=== PATIENT | male | born 1955 | race African-American/Black ===

== ENCOUNTER 2016-10-10 06:04 | Day surgery (SDC) | payer BC ==
[2016-10-10] VITALS (10 sets, daily range): BP systolic 139–169; BP diastolic 72–96; PULSE 55–80; TEMP 97.7
[~2016-10-10] VITALS: Ht 175.3 cm; Wt 118.6 kg
[2016-10-10] MEDS ORDERED: ASPIRIN 81M81 MG/TA2 PO (07:09)
[2016-10-10] MEDS ORDERED: DAILY MULTIPLE1 T19 PO (07:10)
[2016-10-10] MEDS ORDERED: TOPROL XL 25MG25 MG PO ×2 (07:10→07:22)
[2016-10-10] MEDS ORDERED: OMEGA-3 1000 MG1 CAP PO (07:11)
[2016-10-10 07:12] LABS: HEMATOCRIT 42.9 % (42.0-52.0); HEMOGLOBIN 13.7 g/dl (13.5-18.0); MEAN CELL VOLUME 84 fl (80.0-100.0); MEAN CORPUSCULAR HEMOGLOBIN 27 pg (27.0-31.0); MEAN CORPUSCULAR HGB CONC 32 g/dl (33.0-37.0); MEAN PLATELET VOLUME 11.2 fl (7.4-10.4); PLATELET COUNT 154 K/mm3 (130-400); REDCELL DISTRIBUTION WIDTH-CV 14.6 % (11.5-14.5); WHITE BLOOD COUNT 8.9 K/mm3 (4.8-10.8)
[2016-10-10] MEDS ORDERED: B-12 500 MCG PO (07:12)
[2016-10-10 07:18] LABS: PROTHROMBIN TIME 11.1 SECONDS (9.7-12.8)
[2016-10-10] MEDS ORDERED: NORVASC 5MG5 MG/TAB PO (07:21)
[2016-10-10 07:27] LABS: CALCIUM 8.9 mg/dL (8.4-10.2); CREATININE, serum 0.91 mg/dL (0.66-1.25); POTASSIUM 3.8 mmol/L (3.4-5.0)
[2016-10-10] MEDS ORDERED: LOPRESSOR 550 MG/TAB PO (09:16)
[2016-10-10] MEDS ORDERED: NITROSTAT0.4 MG/TAB SL (09:17)
== END 2016-10-10 12:01 | disposition home or self-care (01) ==
LOC: COL.RAD 06:04
PROVIDERS: Internal Medicine Interventional Cardiology
DX: R07.89 Other chest pain (principal); R94.39 Abnormal result of other cardiovascular function study; I10 Essential (primary) hypertension; Z87.891 Personal history of nicotine dependence
CPT/HCPCS: C1760; J2250; J3010